=== PATIENT | female | born 1970 | race Caucasian/White ===

== ENCOUNTER → 2018-05-24 | Outpatient (CLI) | payer BC | LOC: COL.PUL 07:36 | DX: J44.9 Chronic obstructive pulmonary disease, unspecified (principal); Z87.891 Personal history of nicotine dependence ==

== ENCOUNTER 2018-06-01 14:31 | Emergency (ER) | payer OTHER, BC ==
[~2018-06-01] VITALS: Ht 157.5 cm; Wt 70.9 kg
[2018-06-01 15:00] VITALS: BP 156/84; PULSE 73; TEMP 97.8
== END 2018-06-01 15:15 | disposition home or self-care (01) ==
LOC: COL.ER 14:31
DX: S05.01XA Injury of conjunctiva and corneal abrasion without foreign body, right eye, initial encounter (principal); W22.8XXA Striking against or struck by other objects, initial encounter

== ENCOUNTER → 2021-01-15 | Outpatient (CLI) | payer BC ==
[~2021-01-15] MED LIST: AMOXICILLIN 8751 TAB PO
== END ==
LOC: COL.RAD 06:57
DX: K76.0 Fatty (change of) liver, not elsewhere classified (principal)